=== PATIENT | male | born 1955 | race Caucasian/White ===

== ENCOUNTER 2024-07-17 18:30 | Inpatient (IN) | payer OTHER, MEDICARE ==
[~2024-07-17] VITALS: Ht 170.2 cm; Wt 60.4 kg
[2024-07-17] MEDS ORDERED: ONDANSETRON HCL 4 MG/2 ML VIAL IVP PRN (19:45)
[2024-07-17] MEDS ORDERED: THIA100T80 PO (20:08)
[2024-07-17] MEDS ORDERED: EZET10TA82 PO (20:08)
[2024-07-17] MEDS ORDERED: FLUT16SP NASAL (20:08)
[2024-07-17] MEDS ORDERED: SERT-158 PO (20:08)
[2024-07-17] MEDS ORDERED: ROSU10TA72 PO (20:08)
[2024-07-17] MEDS ORDERED: PANT-31 PO (20:08)
[2024-07-17] MEDS ORDERED: RIFA300C62 PO (20:08)
[2024-07-17] MEDS ORDERED: MIRT-89 PO (20:08)
[2024-07-17] MEDS ORDERED: DILT-95 PO (20:08)
[2024-07-17] MEDS ORDERED: ETHA400T33 PO (20:08)
[2024-07-17] MEDS ORDERED: LOSA-381 PO (20:08)
[2024-07-17] MEDS ORDERED: FOLI0.4T14 PO (20:08)
[2024-07-17] MEDS ORDERED: ENOX60SY28 SQ (20:08)
[2024-07-17] MEDS ORDERED: RAME8TAB8 PO (20:08)
[2024-07-17] MEDS ORDERED: FURO-151 PO (20:08)
[2024-07-17] MEDS ORDERED: ASPI81TA87 PO (20:08)
[2024-07-17] MEDS ORDERED: TRAZ-184 PO (20:08)
[2024-07-17] MEDS ORDERED: METO50TA9 PO (20:08)
[2024-07-17] MEDS ORDERED: DIGO125T84 PO (20:09)
[2024-07-17 20:30] VITALS: BP 113/61; PULSE 84; RESP 18; TEMP 97.8; O2SAT 100
[2024-07-17] MEDS: DOCUSATE SODIUM 100 MG CAPSULE PO SCH (20:46)
[2024-07-17 20:47] LABS: BASOPHILS % (AUTO) 0.5 % (0.0-2.0); EOSINOPHILS % (AUTO) 2.7 % (1.0-6.0); HEMATOCRIT 30.5 % (41-53); HEMOGLOBIN 10.1 g/dL (13.5-17.5); LYMPHOCYTES # (AUTO) 1.2 K/uL (1.0-4.8); LYMPHOCYTES % (AUTO) 20.8 % (22.0-44.0); MEAN CORPUSCULAR HEMOGLOBIN 30.1 pg (26.0-34.0); MEAN CORPUSCULAR HGB CONC 33.2 G/dL (31.0-37.0); MEAN CORPUSCULAR VOLUME 91 fL (80-100); MONOCYTES # (AUTO) 0.6 K/uL (0.1-1.0); MONOCYTES % (AUTO) 10.4 % (2.0-9.0); NEUTROPHILS # (AUTO) 3.7 K/uL (1.8-7.7); NEUTROPHILS % (AUTO) 65.6 % (40.0-70.0); PLATELET COUNT (AUTO) 258 K/uL (150-450); RED BLOOD CELL COUNT(AUTO) 3.35 MIL/uL (4.50-5.90); RED CELL DISTRIBUTION WIDTH 14.3 % (11.5-14.5); WHITE BLOOD COUNT (AUTO) 5.7 K/uL (4.5-11.0)
[2024-07-17 20:58] LABS: ANION GAP 5 mmol/L (8-16); CALCIUM, TOTAL 9.4 mg/dL (8.8-10.5); CARBON DIOXIDE 34 mmol/L (22-29); CHLORIDE 101 mmol/L (98-107); CREATININE 0.62 mg/dL (0.60-1.30); GLOMERULAR FILTR. RATE CALC > 60 mL/min (>60); GLUCOSE,RANDOM 156 mg/dL (70-110); POTASSIUM 4.3 mmol/L (3.5-5.1); SODIUM SERUM 140 mmol/L (136-145); UREA NITROGEN, BLOOD 18 mg/dL (7-18)
[2024-07-17 21:13] LABS: ALANINE AMINOTRANSFERASE 24 U/L (12-78); ALBUMIN 2.8 g/dL (3.4-5.0); ALKALINE PHOSPHATASE 100 U/L (46-116); ASPARTATE AMINOTRANSFERASE 26 U/L (15-37); BILIRUBIN,TOTAL 0.2 mg/dL (0.1-1.0); THYROID STIMULATING HORMONE 4.35 uIU/mL (0.36-3.74); TOTAL PROTEIN, SERUM 7.3 g/dL (6.4-8.2)
[2024-07-17] MEDS ORDERED: TraZODone HCL 50 MG TABLET PO PRN (22:15)
[2024-07-17] MEDS: MELATONIN 3 MG TABLET PO PRN (22:33)
[2024-07-18] MEDS ORDERED: HEPARIN SODIUM,PORCINE 5,000 UNITS/ML VIAL SQ SCH
[2024-07-18 05:05] VITALS: BP 112/60; PULSE 82; RESP 18; TEMP 97.7; O2SAT 97
[2024-07-18 07:07] LABS: BASOPHILS % (AUTO) 0.6 % (0.0-2.0); EOSINOPHILS % (AUTO) 2.9 % (1.0-6.0); HEMATOCRIT 29.2 % (41-53); HEMOGLOBIN 9.8 g/dL (13.5-17.5); LYMPHOCYTES # (AUTO) 1.4 K/uL (1.0-4.8); LYMPHOCYTES % (AUTO) 26.5 % (22.0-44.0); MEAN CORPUSCULAR HEMOGLOBIN 30.3 pg (26.0-34.0); MEAN CORPUSCULAR HGB CONC 33.6 G/dL (31.0-37.0); MEAN CORPUSCULAR VOLUME 90 fL (80-100); MONOCYTES # (AUTO) 0.6 K/uL (0.1-1.0); NEUTROPHILS # (AUTO) 3.1 K/uL (1.8-7.7); PLATELET COUNT (AUTO) 245 K/uL (150-450); RED BLOOD CELL COUNT(AUTO) 3.24 MIL/uL (4.50-5.90); WHITE BLOOD COUNT (AUTO) 5.3 K/uL (4.5-11.0)
[2024-07-18] MEDS: ENOXAPARIN SODIUM 60 MG/0.6 ML PF SYRINGE SQ SCH (07:58)
[2024-07-18] MEDS: FLUTICASONE PROPIONATE 50 MCG/SPRAY 16 GM NASAL SPRAY NASAL SCH (07:58)
[2024-07-18] MEDS: ETHAMBUTOL HCL 400 MG TABLET PO SCH (07:59)
[2024-07-18] MEDS: RIFAMPIN 300 MG CAPSULE PO SCH (07:59)
[2024-07-18] MEDS: ASPIRIN 81 MG DR TABLET PO SCH (07:59)
[2024-07-18 08:00] VITALS: BP 122/78; PULSE 78; RESP 18; TEMP 97.6; O2SAT 99
[2024-07-18] MEDS: FOLIC ACID 1 MG TABLET PO SCH (08:00)
[2024-07-18] MEDS: EZETIMIBE 10 MG TABLET PO SCH (08:00)
[2024-07-18] MEDS: THIAMINE 100 MG TABLET PO SCH (08:01)
[2024-07-18] MEDS: PANTOPRAZOLE SODIUM 40 MG DR TABLET PO SCH (08:01)
[2024-07-18] MEDS: SERTRALINE HCL 50 MG TABLET PO SCH (08:01)
[2024-07-18] MEDS: ROSUVASTATIN CALCIUM 10 MG TABLET PO SCH (08:01)
[2024-07-18] MEDS: FUROSEMIDE 40 MG TABLET PO SCH (08:02)
[2024-07-18] MEDS: LOSARTAN POTASSIUM 25 MG TABLET PO SCH (08:02)
[2024-07-18] MEDS: DILTIAZEM HCL CD 180 MG ER CAPSULE PO SCH (09:28)
[2024-07-18] MEDS: METOPROLOL SUCCINATE 50 MG ER TABLET PO SCH (09:29)
[2024-07-18] MEDS: DIGOXIN 125 MCG TABLET PO SCH (09:29)
[2024-07-18 09:31] VITALS: BP 110/71; PULSE 93; RESP 20; TEMP 97.6; O2SAT 100
[2024-07-18 15:57] VITALS: BP 112/67; PULSE 63; RESP 20; TEMP 97.7; O2SAT 97
[2024-07-18 19:33] VITALS: BP 100/64; PULSE 79; RESP 18; TEMP 97.5; O2SAT 99
[2024-07-18] MEDS: MIRTAZAPINE 15 MG TABLET PO SCH (19:52)
[2024-07-18] MEDS ORDERED: IOHEXOL 350 MG/ML 100 ML VIAL ONE (20:13)
[2024-07-18] MEDS ORDERED: SODIUM CHLORIDE 0.9% 100 ML ONE (20:13)
[2024-07-18] MEDS ORDERED: 0.9% SODIUM CHLORIDE 10 ML SYRINGE IVP ONE (20:13)
[2024-07-18] MEDS ORDERED: [UNRECOGNIZED DRUG - OTHER] PO SCH (21:00)
[2024-07-19 05:25] VITALS: BP 109/70; PULSE 78; RESP 18; TEMP 97.6; O2SAT 97
[2024-07-19 06:32] LABS: BASOPHILS % (AUTO) 0.4 % (0.0-2.0); EOSINOPHILS % (AUTO) 2.2 % (1.0-6.0); HEMATOCRIT 30.8 % (41-53); HEMOGLOBIN 10.3 g/dL (13.5-17.5); LYMPHOCYTES # (AUTO) 1.5 K/uL (1.0-4.8); LYMPHOCYTES % (AUTO) 21.2 % (22.0-44.0); MEAN CORPUSCULAR HEMOGLOBIN 30.3 pg (26.0-34.0); MEAN CORPUSCULAR HGB CONC 33.5 G/dL (31.0-37.0); MEAN CORPUSCULAR VOLUME 90 fL (80-100); MONOCYTES # (AUTO) 0.7 K/uL (0.1-1.0); MONOCYTES % (AUTO) 9.6 % (2.0-9.0); NEUTROPHILS # (AUTO) 4.6 K/uL (1.8-7.7); NEUTROPHILS % (AUTO) 66.6 % (40.0-70.0); PLATELET COUNT (AUTO) 276 K/uL (150-450); RED BLOOD CELL COUNT(AUTO) 3.41 MIL/uL (4.50-5.90); RED CELL DISTRIBUTION WIDTH 14.2 % (11.5-14.5); WHITE BLOOD COUNT (AUTO) 6.9 K/uL (4.5-11.0)
[2024-07-19 06:56] LABS: ANION GAP 8 mmol/L (8-16); CALCIUM, TOTAL 9.3 mg/dL (8.8-10.5); CARBON DIOXIDE 29 mmol/L (22-29); CHLORIDE 99 mmol/L (98-107); CREATININE 0.56 mg/dL (0.60-1.30); GLOMERULAR FILTR. RATE CALC > 60 mL/min (>60); GLUCOSE,RANDOM 86 mg/dL (70-110); POTASSIUM 3.9 mmol/L (3.5-5.1); SODIUM SERUM 136 mmol/L (136-145); UREA NITROGEN, BLOOD 11 mg/dL (7-18)
[2024-07-19 08:04] VITALS: BP 138/78; PULSE 77; RESP 18; TEMP 97.7; O2SAT 98
[2024-07-19 15:13] VITALS: BP 102/59; PULSE 72; RESP 18; TEMP 97.6; O2SAT 97
[2024-07-19 20:03] VITALS: BP 146/75; PULSE 76; RESP 17; TEMP 97.5; O2SAT 96
[2024-07-20 04:04] VITALS: BP 132/79; PULSE 72; RESP 16; TEMP 97.5; O2SAT 94
[2024-07-20 09:40] VITALS: BP 134/69; PULSE 86; RESP 16; TEMP 97.9; O2SAT 100
[2024-07-20] MEDS ORDERED: FOLI-130 PO (10:57)
[2024-07-20] MEDS: FluvoxaMINE MALEATE 50 MG TABLET PO SCH (20:55)
[2024-07-20 23:18] VITALS: BP 108/54; PULSE 74; RESP 18; TEMP 97.8; O2SAT 97
[2024-07-21 05:26] VITALS: BP 138/81; PULSE 78; RESP 18; TEMP 97.7; O2SAT 97
[2024-07-21 07:36] VITALS: BP 138/62; PULSE 78; RESP 18; TEMP 97; O2SAT 97
[2024-07-21 09:39] VITALS: BP 119/75
[2024-07-21 10:46] VITALS: BP 122/80
[2024-07-21 15:41] VITALS: BP 93/63; PULSE 62; RESP 18; TEMP 97.6; O2SAT 98
[2024-07-21 19:25] VITALS: BP 101/61; PULSE 68; RESP 18; TEMP 97.6; O2SAT 98
[2024-07-22 06:41] VITALS: BP 121/65; PULSE 67; RESP 18; TEMP 97.6; O2SAT 98
[2024-07-22 08:00] VITALS: BP 130/75; PULSE 79; RESP 16; TEMP 97.6; O2SAT 97
[2024-07-22 19:45] VITALS: BP 92/55; PULSE 72; RESP 18; TEMP 98.4; O2SAT 95
[2024-07-22 23:00] VITALS: BP 103/57; PULSE 62; RESP 18; TEMP 97.5; O2SAT 97
[2024-07-23 03:30] VITALS: BP 117/61; PULSE 69; RESP 18; TEMP 97.6; O2SAT 99
[2024-07-23 08:10] VITALS: BP 121/72; PULSE 72; RESP 20; TEMP 97.5; O2SAT 98
[2024-07-23 14:28] VITALS: BP 93/56; PULSE 76; RESP 18; TEMP 97.5; O2SAT 98
[2024-07-23 19:36] VITALS: BP_SYST 85; BP_SYST 91; BP_DIAS 52; BP_DIAS 54; PULSE 61; RESP 18; TEMP 97.5; O2SAT 100
[2024-07-24 04:23] VITALS: BP 130/71; PULSE 61; RESP 18; TEMP 97.8; O2SAT 100
[2024-07-24 08:26] VITALS: BP 125/67; PULSE 61; RESP 18; TEMP 97.6; O2SAT 100
[2024-07-24 10:03] VITALS: BP 109/61; PULSE 73; RESP 18; O2SAT 100
[2024-07-24 16:32] VITALS: BP 105/67; PULSE 64; RESP 18; TEMP 97.6; O2SAT 100
[2024-07-24 20:03] VITALS: BP 107/54; PULSE 62; RESP 18; TEMP 97.9; O2SAT 99
[2024-07-25 04:56] VITALS: BP 124/70; PULSE 61; RESP 18; TEMP 97.7; O2SAT 99
[2024-07-25 07:10] VITALS: BP 139/70; PULSE 70; RESP 20; TEMP 97.9; O2SAT 99
[2024-07-25 15:09] VITALS: BP 126/72; PULSE 64; RESP 18; TEMP 98.1; O2SAT 98
[2024-07-25 20:30] VITALS: BP 101/55; PULSE 67; RESP 18; TEMP 97.6; O2SAT 100
[2024-07-26 05:00] VITALS: BP 129/69; PULSE 63; RESP 17; TEMP 97.8; O2SAT 100
[2024-07-26 07:55] VITALS: BP 128/67; PULSE 66; RESP 18; TEMP 97.7; O2SAT 99
[2024-07-26 16:23] VITALS: BP 93/53; PULSE 58; RESP 18; TEMP 97.8; O2SAT 100
[2024-07-26 19:43] VITALS: BP 93/53; PULSE 61; RESP 18; TEMP 98.1; O2SAT 99
[2024-07-27 05:33] VITALS: BP 135/79; PULSE 67; RESP 18; TEMP 97.7; O2SAT 99
[2024-07-27 08:41] VITALS: BP 132/75; PULSE 62; RESP 18; TEMP 97.5; O2SAT 100
[2024-07-27 09:01] LABS: BASOPHILS % (AUTO) 0.3 % (0.0-2.0); EOSINOPHILS % (AUTO) 2.6 % (1.0-6.0); HEMATOCRIT 34.7 % (41-53); HEMOGLOBIN 11.4 g/dL (13.5-17.5); LYMPHOCYTES # (AUTO) 1.3 K/uL (1.0-4.8); LYMPHOCYTES % (AUTO) 21.1 % (22.0-44.0); MEAN CORPUSCULAR HEMOGLOBIN 30.2 pg (26.0-34.0); MEAN CORPUSCULAR HGB CONC 32.9 G/dL (31.0-37.0); MEAN CORPUSCULAR VOLUME 92 fL (80-100); MONOCYTES # (AUTO) 0.6 K/uL (0.1-1.0); MONOCYTES % (AUTO) 9.8 % (2.0-9.0); NEUTROPHILS # (AUTO) 4.1 K/uL (1.8-7.7); NEUTROPHILS % (AUTO) 66.2 % (40.0-70.0); PLATELET COUNT (AUTO) 179 K/uL (150-450); RED BLOOD CELL COUNT(AUTO) 3.78 MIL/uL (4.50-5.90); WHITE BLOOD COUNT (AUTO) 6.2 K/uL (4.5-11.0)
[2024-07-27 09:19] LABS: ANION GAP 7 mmol/L (8-16); CALCIUM, TOTAL 9.3 mg/dL (8.8-10.5); CARBON DIOXIDE 32 mmol/L (22-29); CHLORIDE 101 mmol/L (98-107); CREATININE 0.64 mg/dL (0.60-1.30); GLOMERULAR FILTR. RATE CALC > 60 mL/min (>60); GLUCOSE,RANDOM 90 mg/dL (70-110); POTASSIUM 4.5 mmol/L (3.5-5.1); SODIUM SERUM 139 mmol/L (136-145); UREA NITROGEN, BLOOD 14 mg/dL (7-18)
[2024-07-27] MEDS: FUROSEMIDE 20 MG TABLET PO SCH (09:56)
[2024-07-27 17:20] VITALS: BP 107/55; PULSE 53; RESP 19; TEMP 97.7; O2SAT 100
[2024-07-27 21:06] VITALS: BP 104/55; PULSE 60; RESP 18; TEMP 97.7; O2SAT 100
[2024-07-28 05:32] VITALS: BP 129/76; PULSE 68; RESP 18; TEMP 97.6; O2SAT 99
[2024-07-28 08:04] VITALS: BP 131/67; PULSE 73; RESP 18; TEMP 97.7; O2SAT 99
[2024-07-28 15:19] VITALS: BP 101/62; PULSE 66; RESP 18; TEMP 97.7; O2SAT 95
[2024-07-28 19:23] VITALS: BP 93/56; PULSE 71; RESP 18; TEMP 97.5; O2SAT 97
[2024-07-28] MEDS: FUROSEMIDE 20 MG TABLET PO SCH (20:42)
[2024-07-29 04:53] VITALS: BP 118/56; PULSE 75; RESP 18; TEMP 98.2; O2SAT 98
[2024-07-29 08:05] VITALS: BP 102/52; PULSE 75; RESP 20; TEMP 97.7; O2SAT 98
[2024-07-29] MEDS ORDERED: SODIUM CHLORIDE 0.9% 500 ML IV ONE (08:45)
[2024-07-29] MEDS ORDERED: 0.9% SODIUM CHLORIDE 10 ML SYRINGE IVP PRN (08:45)
[2024-07-29] MEDS: SODIUM CHLORIDE 0.9% 250 ML IV ONE ×3 (08:50→12:50)
[2024-07-29] MEDS: PIPERACILLIN/TAZO 3.375 GM/D5W 50 ML IV SCH (09:05)
[2024-07-29] MEDS: LACTOBAC ACID/BULG/BIFID/THERM TABLET PO SCH (09:10)
[2024-07-29 09:43] LABS: BASOPHILS % (AUTO) 0.3 % (0.0-2.0); EOSINOPHILS % (AUTO) 1.6 % (1.0-6.0); HEMATOCRIT 32.7 % (41-53); HEMOGLOBIN 10.8 g/dL (13.5-17.5); LYMPHOCYTES # (AUTO) 1.1 K/uL (1.0-4.8); LYMPHOCYTES % (AUTO) 14.7 % (22.0-44.0); MEAN CORPUSCULAR HEMOGLOBIN 30.4 pg (26.0-34.0); MEAN CORPUSCULAR VOLUME 92 fL (80-100); MONOCYTES # (AUTO) 0.5 K/uL (0.1-1.0); MONOCYTES % (AUTO) 6.1 % (2.0-9.0); NEUTROPHILS # (AUTO) 5.9 K/uL (1.8-7.7); NEUTROPHILS % (AUTO) 77.3 % (40.0-70.0); PLATELET COUNT (AUTO) 176 K/uL (150-450); RED BLOOD CELL COUNT(AUTO) 3.55 MIL/uL (4.50-5.90); RED CELL DISTRIBUTION WIDTH 14.3 % (11.5-14.5); WHITE BLOOD COUNT (AUTO) 7.6 K/uL (4.5-11.0)
[2024-07-29 09:52] LABS: ANION GAP 8 mmol/L (8-16); CALCIUM, TOTAL 9.6 mg/dL (8.8-10.5); CARBON DIOXIDE 32 mmol/L (22-29); CHLORIDE 98 mmol/L (98-107); CREATININE 0.77 mg/dL (0.60-1.30); GLOMERULAR FILTR. RATE CALC > 60 mL/min (>60); GLUCOSE,RANDOM 177 mg/dL (70-110); POTASSIUM 4.7 mmol/L (3.5-5.1); SODIUM SERUM 138 mmol/L (136-145); UREA NITROGEN, BLOOD 11 mg/dL (7-18)
[2024-07-29 09:59] LABS: ALANINE AMINOTRANSFERASE 18 U/L (12-78); ALBUMIN 3.2 g/dL (3.4-5.0); ALKALINE PHOSPHATASE 82 U/L (46-116); ASPARTATE AMINOTRANSFERASE 19 U/L (15-37); BILIRUBIN,TOTAL 0.3 mg/dL (0.1-1.0); LACTATE DEHYDROGENASE 188 U/L (85-227); TOTAL PROTEIN, SERUM 7.9 g/dL (6.4-8.2); TROPONIN I-HIGH SENSITIVITY 11 ng/L (<76)
[2024-07-29 10:14] LABS: LACTIC ACID 3.5 mmol/L (0.4-2.0)
[2024-07-29] MEDS ORDERED: PNEUMOCOCCAL VACCINE POLYVALENT 0.5 ML SYRINGE [PPSV23] IM. ONE (14:30)
[2024-07-29] MEDS ORDERED: SODIUM CHLORIDE 0.9% 50 ML ONE (18:34)
[2024-07-29 19:47] VITALS: BP 128/68; PULSE 87; RESP 17; TEMP 98.2; O2SAT 100
[2024-07-30] VITALS (7 sets, daily range): BP systolic 92–148; BP diastolic 47–103; PULSE 2–126; RESP 15–18; TEMP 97.2–99.3; O2SAT 94–100
[2024-07-30 06:46] LABS: BASOPHILS % (AUTO) 0.3 % (0.0-2.0); EOSINOPHILS % (AUTO) 2.8 % (1.0-6.0); HEMOGLOBIN 10.4 g/dL (13.5-17.5); LYMPHOCYTES # (AUTO) 0.9 K/uL (1.0-4.8); LYMPHOCYTES % (AUTO) 8.8 % (22.0-44.0); MEAN CORPUSCULAR HEMOGLOBIN 30.5 pg (26.0-34.0); MEAN CORPUSCULAR HGB CONC 33.6 G/dL (31.0-37.0); MEAN CORPUSCULAR VOLUME 91 fL (80-100); MONOCYTES % (AUTO) 9.8 % (2.0-9.0); NEUTROPHILS % (AUTO) 78.3 % (40.0-70.0); PLATELET COUNT (AUTO) 166 K/uL (150-450); RED BLOOD CELL COUNT(AUTO) 3.41 MIL/uL (4.50-5.90); RED CELL DISTRIBUTION WIDTH 13.8 % (11.5-14.5); WHITE BLOOD COUNT (AUTO) 10.2 K/uL (4.5-11.0)
[2024-07-30 07:05] LABS: ANION GAP 10 mmol/L (8-16); CALCIUM, TOTAL 9.1 mg/dL (8.8-10.5); CARBON DIOXIDE 28 mmol/L (22-29); CHLORIDE 99 mmol/L (98-107); CREATININE 0.69 mg/dL (0.60-1.30); GLOMERULAR FILTR. RATE CALC > 60 mL/min (>60); GLUCOSE,RANDOM 100 mg/dL (70-110); POTASSIUM 3.8 mmol/L (3.5-5.1); SODIUM SERUM 137 mmol/L (136-145); UREA NITROGEN, BLOOD 12 mg/dL (7-18)
[2024-07-30] MEDS ORDERED: SODIUM CL IRRIG SOLN BOTTLE 250 ML IRRIG ONE (11:40)
[2024-07-30 13:08] LABS: BASOPHILS % (AUTO) 0.4 % (0.0-2.0); EOSINOPHILS % (AUTO) 1.9 % (1.0-6.0); HEMATOCRIT 36.8 % (41-53); HEMOGLOBIN 12.1 g/dL (13.5-17.5); LYMPHOCYTES # (AUTO) 0.5 K/uL (1.0-4.8); MEAN CORPUSCULAR HGB CONC 32.8 G/dL (31.0-37.0); MEAN CORPUSCULAR VOLUME 91 fL (80-100); MONOCYTES # (AUTO) 0.8 K/uL (0.1-1.0); MONOCYTES % (AUTO) 6.2 % (2.0-9.0); NEUTROPHILS # (AUTO) 11.7 K/uL (1.8-7.7); PLATELET COUNT (AUTO) 183 K/uL (150-450); RED BLOOD CELL COUNT(AUTO) 4.04 MIL/uL (4.50-5.90); RED CELL DISTRIBUTION WIDTH 13.9 % (11.5-14.5); WHITE BLOOD COUNT (AUTO) 13.4 K/uL (4.5-11.0)
[2024-07-30 13:09] LABS: NEUTROPHILS % (AUTO) 87.5 % (40.0-70.0)
[2024-07-30] MEDS: METOPROLOL TARTRATE 5 MG/5 ML VIAL IVP ONE ×2 (13:21→14:50)
[2024-07-30 14:00] LABS: ABG BASE EXCESS 1.8 mmol/L (-2.0-3.0); ABG CARBOXYHEMOGLOBIN 0.4 % (0.5-1.5); ABG HCO3 26.7 mmol/L (21.0-28.0); ABG METHEMOGLOBIN 0.1 % (0.0-1.5); ABG OXYGEN CONTENT 16.3 mL/dL (15.0-23.0); ABG OXYGEN SATURATION 96.8 % (94.0-98.0); ABG OXYHEMOGLOBIN 96.3 % (94.0-98.0); ABG PCO2 28 mmHg (35.0-48.0); ABG PH 7.556 (7.350-7.450); ALLEN TEST, BLOOD GAS Positive; PO2, ARTERIAL BG 76.6 mmHg (83.0-108.0); SITE, BLOOD GAS RT RADIAL; SOURCE, BLOOD GAS ARTERIAL; TEMPERATURE, FAHRENHEIT, BG 97.2 FAHREN (96.0-98.6)
[2024-07-30 14:01] LABS: ABG A-A DIFF O2 119.6 mmHg (10-20.0); O2 DEVICE,BLOOD GAS CANNULA (ROOM AIR)
[2024-07-30] MEDS: ACETAMINOPHEN 325 MG TABLET PO PRN (16:35)
[2024-07-30] MEDS: PHENYLEPHRINE 200 MG/D5%-WATER 250 ML IV PRN (19:29)
[2024-07-30] MEDS ORDERED: SODIUM CHLORIDE 0.9% 250 ML IV ONE (20:03)
[2024-07-30] MEDS: VANCOMYCIN 1.5 GM/WATER(PEG) 300 ML IV ONE (20:19)
[2024-07-31] VITALS: BP 96/56; PULSE 75; RESP 20; TEMP 98.2; O2SAT 97
[2024-07-31 04:00] VITALS: BP 101/56; PULSE 85; RESP 21; TEMP 98; O2SAT 98
[2024-07-31 05:51] LABS: ANION GAP 11 mmol/L (8-16); CALCIUM, TOTAL 9.6 mg/dL (8.8-10.5); CARBON DIOXIDE 28 mmol/L (22-29); CHLORIDE 97 mmol/L (98-107); CREATININE 0.74 mg/dL (0.60-1.30); GLOMERULAR FILTR. RATE CALC > 60 mL/min (>60); GLUCOSE,RANDOM 95 mg/dL (70-110); POTASSIUM 4.1 mmol/L (3.5-5.1); SODIUM SERUM 136 mmol/L (136-145); UREA NITROGEN, BLOOD 12 mg/dL (7-18)
[2024-07-31 08:00] VITALS: BP 101/61; PULSE 91; RESP 16; TEMP 97.9; O2SAT 98
[2024-07-31 08:00] LABS: BASOPHILS % (AUTO) 0.7 % (0.0-2.0); EOSINOPHILS % (AUTO) 3.3 % (1.0-6.0); HEMATOCRIT 38.1 % (41-53); HEMOGLOBIN 12.3 g/dL (13.5-17.5); LYMPHOCYTES # (AUTO) 0.9 K/uL (1.0-4.8); LYMPHOCYTES % (AUTO) 7.3 % (22.0-44.0); MEAN CORPUSCULAR HEMOGLOBIN 29.9 pg (26.0-34.0); MEAN CORPUSCULAR HGB CONC 32.2 G/dL (31.0-37.0); MEAN CORPUSCULAR VOLUME 93 fL (80-100); MONOCYTES % (AUTO) 8.7 % (2.0-9.0); NEUTROPHILS # (AUTO) 9.4 K/uL (1.8-7.7); PLATELET COUNT (AUTO) 165 K/uL (150-450); RED BLOOD CELL COUNT(AUTO) 4.11 MIL/uL (4.50-5.90); RED CELL DISTRIBUTION WIDTH 14.3 % (11.5-14.5); WHITE BLOOD COUNT (AUTO) 11.8 K/uL (4.5-11.0)
[2024-07-31] MEDS ORDERED: METOPROLOL SUCCINATE 50 MG ER TABLET PO SCH (09:00)
[2024-07-31] MEDS: VANCOMYCIN 1GM/WATER(PEG/NADA) 200 ML IV SCH (09:16)
[2024-07-31] MEDS: METOPROLOL SUCCINATE 25 MG ER TABLET PO SCH (09:18)
[2024-07-31 12:00] VITALS: BP 97/66; PULSE 85; RESP 18; TEMP 98.1; O2SAT 98
[2024-07-31] MEDS: SODIUM CHLORIDE 0.9% 250 ML IV ONE (14:11)
[2024-07-31 16:00] VITALS: BP 92/47; PULSE 76; RESP 16; TEMP 99; O2SAT 98
== END 2024-07-31 17:40 | disposition short-term general hospital (02) | DRG 190 ==
LOC: 6S 18:30 → 4E 07-20 16:54 → 5S 07-29 15:35 → ICU 07-30 19:15
PROVIDERS: ADMIT Internal Medicine; ATTEND Internal Medicine
DX: J44.0 Chronic obstructive pulmonary disease with (acute) lower respiratory infection (principal); A41.9 Sepsis, unspecified organism; I50.33 Acute on chronic diastolic (congestive) heart failure; J15.69 Pneumonia due to other Gram-negative bacteria; D62 Acute posthemorrhagic anemia; J96.11 Chronic respiratory failure with hypoxia; E87.4 Mixed disorder of acid-base balance; R45.851 Suicidal ideations; I47.19 Other supraventricular tachycardia; I48.0 Paroxysmal atrial fibrillation; S10.83XA Contusion of other specified part of neck, initial encounter; I72.0 Aneurysm of carotid artery; I11.0 Hypertensive heart disease with heart failure; R94.6 Abnormal results of thyroid function studies; I73.9 Peripheral vascular disease, unspecified; E78.5 Hyperlipidemia, unspecified; I35.0 Nonrheumatic aortic (valve) stenosis; F41.9 Anxiety disorder, unspecified; F32.A Depression, unspecified; K21.9 Gastro-esophageal reflux disease without esophagitis; X58.XXXA Exposure to other specified factors, initial encounter; Z79.01 Long term (current) use of anticoagulants; Z95.2 Presence of prosthetic heart valve; Y93.89 Activity, other specified; Y92.89 Other specified places as the place of occurrence of the external cause; Y99.8 Other external cause status
CPT/HCPCS: 36600; 70498; 71045; 71250; 80048; 80053; 82271; 82805; 83605; 83615; 83735; 83880; 84145; 84443; 84484; 85025; 85730; 87040; 87045; 87070; 87081; 87205; 87481; 89055; 93005; 93306; 93880; G0238; G0378; J1650; J2370; J2543; J3490; J7050; 36415-L1; 36415-TC